=== PATIENT | female | born 1960 | race Caucasian/White ===

== ENCOUNTER 2018-01-04 15:48 | Emergency (ER) | payer MEDICAID ==
[~2018-01-04] VITALS: Ht 175.3 cm; Wt 100.0 kg
[2018-01-04] MEDS ORDERED: OMEP10 PO (15:57)
[2018-01-04] MEDS: KETOROLAC TROMETHAMINE 30 MG/ML VIAL IM ONE (16:54)
[2018-01-04 19:05] VITALS: BP 110/60
== END 2018-01-04 19:07 | disposition home or self-care (01) ==
LOC: EMS 15:49
DX: M71.22 Synovial cyst of popliteal space [Baker], left knee (principal); K21.9 Gastro-esophageal reflux disease without esophagitis; F12.90 Cannabis use, unspecified, uncomplicated
CPT/HCPCS: 73562; 93971; 96372; 99284; J1885